=== PATIENT | male | born 1945 | race African-American/Black ===

== ENCOUNTER 2021-06-10 12:25 | Inpatient (IN) | payer OTHER ==
[2021-06-10] MEDS ORDERED: morphine CARPU-JECT 2 MG/1 ML DISP.SYRIN IVPUSH ONE ×3 (13:48→17:21)
[2021-06-10] MEDS ORDERED: SODIUM CHLORIDE 0.9% 500 ML INFUS.BAG IV ONE ×2 (14:12→16:49)
[2021-06-10] MEDS ORDERED: MORPHINE SULFATE 2 MG/ML VIAL ONE ×3 (14:31→17:49)
[2021-06-10 14:39] LABS: BASO % 0.9 % (0-2.0); EOS % 0.1 % (0-4.5); HEMATOCRIT 35.5 % (35.4-49); HEMOGLOBIN 11.3 GM/dL (11.7-16.9); LYMPH % 3.7 % (8-40); MCH 27.8 pg (25.7-33.7); MCHC 31.8 g/dl (32.0-35.9); MEAN CELL VOLUME 87.3 fl (80-96); MEAN PLT VOLUME 9.1 fl (7.5-11.1); MONO % 5.2 % (3.8-10.2); NEUT % 90.1 % (42.8-82.8); PLATELET COUNT 338 10^3/uL (134-434); RBC 4.07 M/mm3 (4.00-5.60); RDW 15.2 % (11.9-15.9); WHITE BLOOD COUNT 7.8 K/mm3 (4.0-10.0)
[2021-06-10 14:54] LABS: INR 1.02 (0.83-1.09); PROTHROMBIN TIME (PATIENT) 12.5 SEC (9.7-13.0)
[2021-06-10 14:58] LABS: ACTIVATED PTT 29.1 SECONDS (25.2-36.5)
[2021-06-10 15:12] LABS: CHLORIDE 107 mmol/L (98-107); SODIUM 138 mmol/L (136-145)
[2021-06-10 15:14] LABS: ANION GAP 10 MMOL/L (8-16); BLOOD UREA NITROGEN 15.4 mg/dL (7-18); CALCIUM 8.7 mg/dL (8.5-10.1); CO2 20 mmol/L (21-32); GLUCOSE,RANDOM 175 mg/dL (74-106)
[2021-06-10 15:17] LABS: CREATININE 1.7 mg/dL (0.55-1.3); SGOT/AST 21 U/L (15-37); SGPT/ALT 25 U/L (13-61)
[2021-06-10 15:20] LABS: ALK PHOS 113 U/L (45-117); BILIRUBIN,TOTAL 0.6 mg/dL (0.2-1); TOT PROT 7.6 g/dl (6.4-8.2)
[2021-06-10 15:54] LABS: LACTIC ACID 3.3 mmol/L (0.4-2.0)
[2021-06-10 21:34] LABS: LACTIC ACID 2.7 mmol/L (0.4-2.0)
[2021-06-10] MEDS ORDERED: ONDANSETRON 4 MG/2 ML VIAL IVPUSH PRN (23:19)
[2021-06-10] MEDS: DEXTROSE 5%-0.45% SALINE 1,000 ML IV SCH (23:39)
[2021-06-11] MEDS ORDERED: PIPERACILLIN/TAZOBACTAM 3.375 GM VIAL IVPB ONE ×3 (01:04→17:16)
[2021-06-11] MEDS ORDERED: DEXTROSE 5%-WATER - 50 ML IVPB ONE ×3 (01:05→17:17)
[2021-06-11] MEDS: PIPERACILLIN/TAZOB 3.375 GM 3.375 GM in DEXTROSE 5%-WATER - 50 ML IVPB SCH ×3 (01:33→18:09)
[2021-06-11] MEDS: MORPHINE SULFATE 2 MG/ML VIAL IVPUSH PRN ×2 (05:12→18:02)
[2021-06-11] MEDS: hydrALAZINE HCL 25 MG TABLET (FP) PO SCH ×3 (06:13→22:20)
[2021-06-11] MEDS: INSULIN SLIDING SCALE (NOVOLOG) 1 VIAL SQ SCH ×4 (06:13→22:20)
[2021-06-11 09:27] LABS: BASO % 0.3 % (0-2.0); EOS % 0.2 % (0-4.5); HEMATOCRIT 31.5 % (35.4-49); HEMOGLOBIN 10.1 GM/dL (11.7-16.9); LYMPH % 7.3 % (8-40); MCH 27.7 pg (25.7-33.7); MCHC 32.2 g/dl (32.0-35.9); MEAN CELL VOLUME 86.2 fl (80-96); MEAN PLT VOLUME 9.4 fl (7.5-11.1); MONO % 12.8 % (3.8-10.2); NEUT % 79.4 % (42.8-82.8); PLATELET COUNT 290 10^3/uL (134-434); RBC 3.65 M/mm3 (4.00-5.60); RDW 15.6 % (11.9-15.9); WHITE BLOOD COUNT 12.1 K/mm3 (4.0-10.0)
[2021-06-11 09:35] LABS: CALCIUM 8.4 mg/dL (8.5-10.1)
[2021-06-11 09:37] LABS: ALBUMIN 3.4 g/dl (3.4-5.0); BLOOD UREA NITROGEN 13.3 mg/dL (7-18)
[2021-06-11 09:44] LABS: BILIRUBIN,TOTAL 1.1 mg/dL (0.2-1); CREATININE 1.4 mg/dL (0.55-1.3); TOT PROT 6.4 g/dl (6.4-8.2)
[2021-06-11] MEDS: ENOXAPARIN NA (PORCINE) 40 MG/0.4 ML DISP.SYRIN SQ SCH (10:26)
[2021-06-11] MEDS ORDERED: METHOTREXATE 2.5 MG TABLET PO SCH (11:00)
[2021-06-11] MEDS: amLODIPine BESYLATE 10 MG TABLET (FP) PO SCH (12:05)
[2021-06-11] MEDS: metoPROLOL SUCCINATE 25 MG TAB.SR.24H (FP) PO SCH (12:05)
[2021-06-11] MEDS: ATORVASTATIN CA 20 MG TABLET (FP) PO SCH (22:20)
[2021-06-11] MEDS: DEXTROSE 5%-0.45% SALINE 1,000 ML IV SCH (23:34)
[2021-06-12] MEDS ORDERED: PIPERACILLIN/TAZOBACTAM 3.375 GM VIAL IVPB ONE ×3 (00:48→15:55)
[2021-06-12] MEDS ORDERED: DEXTROSE 5%-WATER - 50 ML IVPB ONE ×3 (00:48→15:56)
[2021-06-12] MEDS: PIPERACILLIN/TAZOB 3.375 GM 3.375 GM in DEXTROSE 5%-WATER - 50 ML IVPB SCH ×3 (01:02→17:07)
[2021-06-12] MEDS: MORPHINE SULFATE 2 MG/ML VIAL IVPUSH PRN ×4 (01:25→23:42)
[2021-06-12] MEDS ORDERED: PIPERACILLIN/TAZOB 3.375 GM 3.375 GM in DEXTROSE 5%-WATER - 50 ML IVPB SCH (02:00)
[2021-06-12] MEDS ORDERED: FUROSEMIDE 40 MG/4 ML INJECTABLE VIAL IVPUSH ONE (02:58)
[2021-06-12 03:07] LABS: ARTERIAL BLD GAS O2 SATURATION 95.9 % (95-98); ARTERIAL BLOOD GAS BASE EXCESS -3.8 mmol/L (-2-2); ARTERIAL BLOOD GAS PO2 81.2 mmHg (80-100); ARTERIAL BLOOD GAS pH 7.385 (7.350-7.450)
[2021-06-12 03:09] LABS: ALLENS TEST POSITIVE
[2021-06-12] MEDS ORDERED: VANCOMYCIN 1 GM in D5W (PRE-DOCKED) 1,000 MG/250 ML IVPB ONE (04:45)
[2021-06-12 05:00] LABS: BASO % 0.5 % (0-2.0); EOS % 0.1 % (0-4.5); HEMOGLOBIN 10.4 GM/dL (11.7-16.9); LYMPH % 1.4 % (8-40); MCH 27.6 pg (25.7-33.7); MCHC 32.6 g/dl (32.0-35.9); MEAN CELL VOLUME 84.7 fl (80-96); MEAN PLT VOLUME 8.9 fl (7.5-11.1); MONO % 8.7 % (3.8-10.2); NEUT % 89.3 % (42.8-82.8); PLATELET COUNT 278 10^3/uL (134-434); RBC 3.78 M/mm3 (4.00-5.60); RDW 15.4 % (11.9-15.9); WHITE BLOOD COUNT 16.1 K/mm3 (4.0-10.0)
[2021-06-12 05:20] LABS: CALCIUM 8.2 mg/dL (8.5-10.1)
[2021-06-12 05:21] LABS: ALBUMIN 3.3 g/dl (3.4-5.0); BLOOD UREA NITROGEN 11.7 mg/dL (7-18)
[2021-06-12 05:25] LABS: BILIRUBIN,TOTAL 1.8 mg/dL (0.2-1); CREATININE 1.5 mg/dL (0.55-1.3); TOT PROT 6.6 g/dl (6.4-8.2)
[2021-06-12] MEDS: INSULIN SLIDING SCALE (NOVOLOG) 1 VIAL SQ SCH ×4 (06:19→21:30)
[2021-06-12] MEDS: hydrALAZINE HCL 25 MG TABLET (FP) PO SCH ×3 (06:19→21:30)
[2021-06-12 09:08] LABS: BASO % 0.4 % (0-2.0); HEMATOCRIT 31.8 % (35.4-49); HEMOGLOBIN 10.4 GM/dL (11.7-16.9); LYMPH % 3.8 % (8-40); MCH 27.7 pg (25.7-33.7); MCHC 32.6 g/dl (32.0-35.9); MEAN CELL VOLUME 84.9 fl (80-96); MONO % 9.7 % (3.8-10.2); NEUT % 86.1 % (42.8-82.8); PLATELET COUNT 290 10^3/uL (134-434); RBC 3.75 M/mm3 (4.00-5.60); RDW 15.4 % (11.9-15.9); WHITE BLOOD COUNT 16.8 K/mm3 (4.0-10.0)
[2021-06-12] MEDS: metoPROLOL SUCCINATE 25 MG TAB.SR.24H (FP) PO SCH (09:28)
[2021-06-12] MEDS: amLODIPine BESYLATE 10 MG TABLET (FP) PO SCH (09:28)
[2021-06-12] MEDS: ENOXAPARIN NA (PORCINE) 40 MG/0.4 ML DISP.SYRIN SQ SCH (09:29)
[2021-06-12 09:34] LABS: ALBUMIN 3.2 g/dl (3.4-5.0); BLOOD UREA NITROGEN 11.7 mg/dL (7-18); CALCIUM 8.5 mg/dL (8.5-10.1)
[2021-06-12 09:37] LABS: CREATININE 1.5 mg/dL (0.55-1.3)
[2021-06-12 09:38] LABS: BILIRUBIN,TOTAL 1.5 mg/dL (0.2-1); TOT PROT 6.4 g/dl (6.4-8.2)
[2021-06-12] MEDS ORDERED: POTASSIUM CHLORIDE TABS 20 MEQ TABLET.ER (FP) PO ONE (15:35)
[2021-06-12 19:45] LABS: MAGNESIUM 1.4 mg/dL (1.8-2.4)
[2021-06-12 19:48] LABS: PHOSPHOROUS 2.3 mg/dL (2.5-4.9)
[2021-06-12 19:54] LABS: N-TERMINAL BNP 2323.3 pg/ml (5-450)
[2021-06-12] MEDS: ATORVASTATIN CA 20 MG TABLET (FP) PO SCH (21:30)
[2021-06-13] MEDS ORDERED: DEXTROSE 5%-WATER - 50 ML IVPB ONE ×3 (02:34→17:31)
[2021-06-13] MEDS ORDERED: PIPERACILLIN/TAZOBACTAM 3.375 GM VIAL IVPB ONE ×3 (02:34→17:31)
[2021-06-13] MEDS: PIPERACILLIN/TAZOB 3.375 GM 3.375 GM in DEXTROSE 5%-WATER - 50 ML IVPB SCH ×3 (02:45→17:45)
[2021-06-13] MEDS: INSULIN SLIDING SCALE (NOVOLOG) 1 VIAL SQ SCH ×4 (06:32→21:27)
[2021-06-13] MEDS: hydrALAZINE HCL 25 MG TABLET (FP) PO SCH ×3 (06:32→21:26)
[2021-06-13] MEDS: MORPHINE SULFATE 2 MG/ML VIAL IVPUSH PRN ×2 (08:45→14:51)
[2021-06-13] MEDS ORDERED: PT OWN MED DRAWER 7, Y5N ONE (10:39)
[2021-06-13] MEDS: metoPROLOL SUCCINATE 25 MG TAB.SR.24H (FP) PO SCH (10:45)
[2021-06-13] MEDS: amLODIPine BESYLATE 10 MG TABLET (FP) PO SCH (10:45)
[2021-06-13] MEDS: ENOXAPARIN NA (PORCINE) 40 MG/0.4 ML DISP.SYRIN SQ SCH (10:46)
[2021-06-13] MEDS: VANCOMYCIN PREMIX 1.5 GM 1,500 MG/300 ML BAG IVPB SCH (10:46)
[2021-06-13] MEDS: ACETAMINOPHEN 325 MG TABLET (FP) PO PRN ×2 (12:52→21:27)
[2021-06-13 13:11] LABS: BASO % 0.3 % (0-2.0); HEMATOCRIT 32.5 % (35.4-49); HEMOGLOBIN 10.6 GM/dL (11.7-16.9); LYMPH % 3.6 % (8-40); MCH 27.9 pg (25.7-33.7); MCHC 32.6 g/dl (32.0-35.9); MEAN CELL VOLUME 85.6 fl (80-96); MEAN PLT VOLUME 9.5 fl (7.5-11.1); MONO % 10.3 % (3.8-10.2); NEUT % 85.8 % (42.8-82.8); PLATELET COUNT 292 10^3/uL (134-434); RDW 15.3 % (11.9-15.9); WHITE BLOOD COUNT 14.2 K/mm3 (4.0-10.0)
[2021-06-13 13:31] LABS: CALCIUM 8.2 mg/dL (8.5-10.1)
[2021-06-13 13:35] LABS: CREATININE 1.5 mg/dL (0.55-1.3)
[2021-06-13 13:36] LABS: BILIRUBIN,TOTAL 1.6 mg/dL (0.2-1); TOT PROT 6.3 g/dl (6.4-8.2)
[2021-06-13] MEDS: FUROSEMIDE 40 MG TABLET (FP) PO SCH (14:51)
[2021-06-13] MEDS ORDERED: POTASSIUM CHLORIDE TABS 20 MEQ TABLET.ER (FP) PO ONE (15:00)
[2021-06-13 18:00] LABS: BF WBC & OTHER NUCLEATED CELLS 18355 /mm3
[2021-06-13 19:23] LABS: BODY FLUID MONOCYTE 15 %
[2021-06-13] MEDS: ATORVASTATIN CA 20 MG TABLET (FP) PO SCH (21:27)
[2021-06-14] MEDS ORDERED: PIPERACILLIN/TAZOBACTAM 3.375 GM VIAL IVPB ONE ×3 (01:39→17:21)
[2021-06-14] MEDS ORDERED: DEXTROSE 5%-WATER - 50 ML IVPB ONE ×3 (01:40→17:21)
[2021-06-14] MEDS: PIPERACILLIN/TAZOB 3.375 GM 3.375 GM in DEXTROSE 5%-WATER - 50 ML IVPB SCH ×3 (02:23→17:40)
[2021-06-14] MEDS: hydrALAZINE HCL 25 MG TABLET (FP) PO SCH ×3 (06:10→20:59)
[2021-06-14] MEDS: INSULIN SLIDING SCALE (NOVOLOG) 1 VIAL SQ SCH ×4 (06:11→20:59)
[2021-06-14] MEDS: MORPHINE SULFATE 2 MG/ML VIAL IVPUSH PRN ×2 (07:42→18:54)
[2021-06-14] MEDS ORDERED: PT OWN MED DRAWER 7, Y5N ONE (10:24)
[2021-06-14] MEDS: ENOXAPARIN NA (PORCINE) 40 MG/0.4 ML DISP.SYRIN SQ SCH (10:29)
[2021-06-14] MEDS: FUROSEMIDE 40 MG TABLET (FP) PO SCH (10:29)
[2021-06-14] MEDS: amLODIPine BESYLATE 10 MG TABLET (FP) PO SCH (10:29)
[2021-06-14 10:30] LABS: ALBUMIN 2.7 g/dl (3.4-5.0); BLOOD UREA NITROGEN 16.4 mg/dL (7-18)
[2021-06-14] MEDS: metoPROLOL SUCCINATE 25 MG TAB.SR.24H (FP) PO SCH (10:30)
[2021-06-14] MEDS: VANCOMYCIN PREMIX 1.5 GM 1,500 MG/300 ML BAG IVPB SCH (10:30)
[2021-06-14 10:33] LABS: CREATININE 1.6 mg/dL (0.55-1.3)
[2021-06-14 10:35] LABS: BILIRUBIN,TOTAL 1.2 mg/dL (0.2-1); TOT PROT 5.8 g/dl (6.4-8.2)
[2021-06-14] MEDS ORDERED: COLCHICINE 0.6 MG CAP PO SCH (15:00)
[2021-06-14] MEDS: COLCHICINE 0.6 MG CAP PO SCH (18:29)
[2021-06-14] MEDS: ATORVASTATIN CA 20 MG TABLET (FP) PO SCH (20:59)
[2021-06-15] MEDS ORDERED: PIPERACILLIN/TAZOBACTAM 3.375 GM VIAL IVPB ONE ×3 (01:14→17:25)
[2021-06-15] MEDS ORDERED: DEXTROSE 5%-WATER - 50 ML IVPB ONE ×3 (01:14→17:26)
[2021-06-15] MEDS: ACETAMINOPHEN 325 MG TABLET (FP) PO PRN ×2 (01:33→13:20)
[2021-06-15] MEDS: PIPERACILLIN/TAZOB 3.375 GM 3.375 GM in DEXTROSE 5%-WATER - 50 ML IVPB SCH ×3 (01:33→17:31)
[2021-06-15] MEDS: MORPHINE SULFATE 2 MG/ML VIAL IVPUSH PRN ×2 (05:41→18:29)
[2021-06-15] MEDS: hydrALAZINE HCL 25 MG TABLET (FP) PO SCH ×3 (05:42→21:00)
[2021-06-15] MEDS: INSULIN SLIDING SCALE (NOVOLOG) 1 VIAL SQ SCH ×4 (06:27→21:00)
[2021-06-15 08:17] LABS: BASO % 0.6 % (0-2.0); HEMATOCRIT 33.3 % (35.4-49); HEMOGLOBIN 10.8 GM/dL (11.7-16.9); LYMPH % 6.4 % (8-40); MCH 27.6 pg (25.7-33.7); MCHC 32.3 g/dl (32.0-35.9); MEAN CELL VOLUME 85.5 fl (80-96); MEAN PLT VOLUME 9.6 fl (7.5-11.1); MONO % 12.1 % (3.8-10.2); NEUT % 79.9 % (42.8-82.8); PLATELET COUNT 289 10^3/uL (134-434); RBC 3.89 M/mm3 (4.00-5.60); RDW 15.1 % (11.9-15.9); WHITE BLOOD COUNT 12.8 K/mm3 (4.0-10.0)
[2021-06-15 08:39] LABS: ALBUMIN 2.7 g/dl (3.4-5.0); BLOOD UREA NITROGEN 15.9 mg/dL (7-18); CALCIUM 8.2 mg/dL (8.5-10.1)
[2021-06-15 08:42] LABS: CREATININE 1.5 mg/dL (0.55-1.3)
[2021-06-15 08:44] LABS: TOT PROT 6.3 g/dl (6.4-8.2)
[2021-06-15] MEDS ORDERED: COLCHICINE 0.6 MG CAP PO SCH (10:00)
[2021-06-15] MEDS: ENOXAPARIN NA (PORCINE) 40 MG/0.4 ML DISP.SYRIN SQ SCH (11:05)
[2021-06-15] MEDS: VANCOMYCIN PREMIX 1.5 GM 1,500 MG/300 ML BAG IVPB SCH (11:05)
[2021-06-15] MEDS: FUROSEMIDE 40 MG TABLET (FP) PO SCH (11:07)
[2021-06-15] MEDS: amLODIPine BESYLATE 10 MG TABLET (FP) PO SCH (11:07)
[2021-06-15] MEDS: metoPROLOL SUCCINATE 25 MG TAB.SR.24H (FP) PO SCH (11:07)
[2021-06-15] MEDS: COLCHICINE 0.6 MG CAP PO SCH (12:07)
[2021-06-15] MEDS ORDERED: POTASSIUM CHLORIDE TABS 20 MEQ TABLET.ER (FP) PO ONE (12:22)
[2021-06-15] MEDS ORDERED: PT OWN MED DRAWER 7, Y5N ONE (14:25)
[2021-06-15] MEDS: ATORVASTATIN CA 20 MG TABLET (FP) PO SCH (21:00)
[2021-06-16] MEDS ORDERED: PIPERACILLIN/TAZOBACTAM 3.375 GM VIAL IVPB ONE ×3 (00:53→17:14)
[2021-06-16] MEDS ORDERED: DEXTROSE 5%-WATER - 50 ML IVPB ONE ×3 (00:54→17:14)
[2021-06-16] MEDS: PIPERACILLIN/TAZOB 3.375 GM 3.375 GM in DEXTROSE 5%-WATER - 50 ML IVPB SCH ×3 (01:18→17:28)
[2021-06-16] MEDS: INSULIN SLIDING SCALE (NOVOLOG) 1 VIAL SQ SCH ×4 (06:21→21:39)
[2021-06-16] MEDS: hydrALAZINE HCL 25 MG TABLET (FP) PO SCH ×3 (06:21→21:39)
[2021-06-16] MEDS: MORPHINE SULFATE 2 MG/ML VIAL IVPUSH PRN ×2 (06:55→17:28)
[2021-06-16] MEDS ORDERED: PT OWN MED DRAWER 7, Y5N ONE (09:45)
[2021-06-16] MEDS: FUROSEMIDE 40 MG TABLET (FP) PO SCH (09:47)
[2021-06-16] MEDS: ENOXAPARIN NA (PORCINE) 40 MG/0.4 ML DISP.SYRIN SQ SCH (09:47)
[2021-06-16] MEDS: amLODIPine BESYLATE 10 MG TABLET (FP) PO SCH (09:47)
[2021-06-16 09:48] LABS: BASO % 0.4 % (0-2.0); EOS % 1.3 % (0-4.5); HEMATOCRIT 30.2 % (35.4-49); HEMOGLOBIN 9.8 GM/dL (11.7-16.9); LYMPH % 4.9 % (8-40); MCH 27.5 pg (25.7-33.7); MCHC 32.5 g/dl (32.0-35.9); MEAN CELL VOLUME 84.6 fl (80-96); MEAN PLT VOLUME 9.3 fl (7.5-11.1); MONO % 9.7 % (3.8-10.2); NEUT % 83.7 % (42.8-82.8); PLATELET COUNT 284 10^3/uL (134-434); RBC 3.57 M/mm3 (4.00-5.60); RDW 15.1 % (11.9-15.9); WHITE BLOOD COUNT 14.9 K/mm3 (4.0-10.0)
[2021-06-16] MEDS: metoPROLOL SUCCINATE 25 MG TAB.SR.24H (FP) PO SCH (09:48)
[2021-06-16] MEDS: ACETAMINOPHEN 325 MG TABLET (FP) PO PRN ×2 (09:50→20:05)
[2021-06-16 10:10] LABS: CALCIUM 8.1 mg/dL (8.5-10.1)
[2021-06-16 10:11] LABS: ALBUMIN 2.5 g/dl (3.4-5.0); BLOOD UREA NITROGEN 17.9 mg/dL (7-18); MAGNESIUM 1.6 mg/dL (1.8-2.4)
[2021-06-16 10:13] LABS: BILIRUBIN,TOTAL 0.7 mg/dL (0.2-1)
[2021-06-16 10:14] LABS: CREATININE 1.4 mg/dL (0.55-1.3)
[2021-06-16] MEDS ORDERED: POTASSIUM CHLORIDE TABS 20 MEQ TABLET.ER (FP) PO ONE ×2 (12:00→20:00)
[2021-06-16] MEDS: COLCHICINE 0.6 MG CAP PO SCH (12:23)
[2021-06-16] MEDS: ATORVASTATIN CA 20 MG TABLET (FP) PO SCH (21:39)
[2021-06-17] MEDS ORDERED: PIPERACILLIN/TAZOBACTAM 3.375 GM VIAL IVPB ONE ×3 (00:44→16:31)
[2021-06-17] MEDS ORDERED: DEXTROSE 5%-WATER - 50 ML IVPB ONE ×3 (00:44→16:32)
[2021-06-17] MEDS: MORPHINE SULFATE 2 MG/ML VIAL IVPUSH PRN ×3 (01:03→18:34)
[2021-06-17] MEDS: PIPERACILLIN/TAZOB 3.375 GM 3.375 GM in DEXTROSE 5%-WATER - 50 ML IVPB SCH ×3 (01:52→17:25)
[2021-06-17] MEDS: INSULIN SLIDING SCALE (NOVOLOG) 1 VIAL SQ SCH ×4 (06:36→22:24)
[2021-06-17] MEDS: hydrALAZINE HCL 25 MG TABLET (FP) PO SCH ×3 (06:37→22:25)
[2021-06-17 08:51] LABS: ALBUMIN 2.5 g/dl (3.4-5.0); BLOOD UREA NITROGEN 16.4 mg/dL (7-18); CALCIUM 8.3 mg/dL (8.5-10.1); MAGNESIUM 1.6 mg/dL (1.8-2.4)
[2021-06-17 08:54] LABS: CREATININE 1.4 mg/dL (0.55-1.3)
[2021-06-17 08:56] LABS: BILIRUBIN,TOTAL 0.7 mg/dL (0.2-1); TOT PROT 6.1 g/dl (6.4-8.2)
[2021-06-17] MEDS ORDERED: PT OWN MED DRAWER 7, Y5N ONE ×3 (10:03→18:33)
[2021-06-17] MEDS: metoPROLOL SUCCINATE 25 MG TAB.SR.24H (FP) PO SCH (10:15)
[2021-06-17] MEDS: FUROSEMIDE 40 MG TABLET (FP) PO SCH (10:15)
[2021-06-17] MEDS: ACETAMINOPHEN 325 MG TABLET (FP) PO PRN (10:15)
[2021-06-17] MEDS: amLODIPine BESYLATE 10 MG TABLET (FP) PO SCH (10:15)
[2021-06-17] MEDS: ENOXAPARIN NA (PORCINE) 40 MG/0.4 ML DISP.SYRIN SQ SCH (10:16)
[2021-06-17 11:21] LABS: BASO % 0.5 % (0-2.0); EOS % 2.2 % (0-4.5); HEMATOCRIT 31.2 % (35.4-49); HEMOGLOBIN 10.1 GM/dL (11.7-16.9); LYMPH % 5.1 % (8-40); MCH 27.6 pg (25.7-33.7); MCHC 32.3 g/dl (32.0-35.9); MEAN CELL VOLUME 85.5 fl (80-96); MEAN PLT VOLUME 9.8 fl (7.5-11.1); MONO % 8.3 % (3.8-10.2); NEUT % 83.9 % (42.8-82.8); PLATELET COUNT 297 10^3/uL (134-434); RBC 3.65 M/mm3 (4.00-5.60); RDW 14.9 % (11.9-15.9); WHITE BLOOD COUNT 12.9 K/mm3 (4.0-10.0)
[2021-06-17 11:47] LABS: ANISOCYTOSIS 0; MACROCYTOSIS 0; PLATELET ESTIMATE NORMAL
[2021-06-17] MEDS: COLCHICINE 0.6 MG TAB PO SCH (12:25)
[2021-06-17] MEDS: COLCHICINE 0.6 MG CAP PO SCH (12:32)
[2021-06-17] MEDS ORDERED: POTASSIUM CHLORIDE TABS 20 MEQ TABLET.ER (FP) PO ONE (16:33)
[2021-06-17] MEDS ORDERED: MAGNESIUM OXIDE 400 MG TABLET (FP) PO ONE (16:33)
[2021-06-17] MEDS: ATORVASTATIN CA 20 MG TABLET (FP) PO SCH (22:25)
[2021-06-18] MEDS ORDERED: PIPERACILLIN/TAZOBACTAM 3.375 GM VIAL IVPB ONE ×3 (02:54→17:24)
[2021-06-18] MEDS ORDERED: DEXTROSE 5%-WATER - 50 ML IVPB ONE ×3 (02:54→17:24)
[2021-06-18] MEDS: PIPERACILLIN/TAZOB 3.375 GM 3.375 GM in DEXTROSE 5%-WATER - 50 ML IVPB SCH ×3 (02:59→17:28)
[2021-06-18] MEDS: MORPHINE SULFATE 2 MG/ML VIAL IVPUSH PRN ×3 (03:56→20:36)
[2021-06-18] MEDS: INSULIN SLIDING SCALE (NOVOLOG) 1 VIAL SQ SCH ×4 (06:28→21:30)
[2021-06-18] MEDS: hydrALAZINE HCL 25 MG TABLET (FP) PO SCH ×3 (06:28→21:27)
[2021-06-18 09:24] LABS: EOS % 2.3 % (0-4.5); HEMOGLOBIN 10.5 GM/dL (11.7-16.9); LYMPH % 8.3 % (8-40); MCH 27.9 pg (25.7-33.7); MCHC 32.7 g/dl (32.0-35.9); MEAN CELL VOLUME 85.5 fl (80-96); MEAN PLT VOLUME 9.5 fl (7.5-11.1); MONO % 9.9 % (3.8-10.2); NEUT % 78.5 % (42.8-82.8); PLATELET COUNT 323 10^3/uL (134-434); RBC 3.75 M/mm3 (4.00-5.60); WHITE BLOOD COUNT 12.5 K/mm3 (4.0-10.0)
[2021-06-18] MEDS ORDERED: PT OWN MED DRAWER 7, Y5N ONE (09:37)
[2021-06-18] MEDS: COLCHICINE 0.6 MG TAB PO SCH (09:47)
[2021-06-18] MEDS: metoPROLOL SUCCINATE 25 MG TAB.SR.24H (FP) PO SCH (09:47)
[2021-06-18] MEDS: amLODIPine BESYLATE 10 MG TABLET (FP) PO SCH (09:47)
[2021-06-18] MEDS: FUROSEMIDE 40 MG TABLET (FP) PO SCH (09:47)
[2021-06-18 10:05] LABS: ALBUMIN 2.7 g/dl (3.4-5.0); CALCIUM 8.6 mg/dL (8.5-10.1)
[2021-06-18 10:06] LABS: BLOOD UREA NITROGEN 14.1 mg/dL (7-18); MAGNESIUM 1.8 mg/dL (1.8-2.4)
[2021-06-18 10:09] LABS: BILIRUBIN,TOTAL 0.7 mg/dL (0.2-1); CREATININE 1.3 mg/dL (0.55-1.3); TOT PROT 6.6 g/dl (6.4-8.2)
[2021-06-18] MEDS: ACETAMINOPHEN 325 MG TABLET (FP) PO PRN ×2 (11:19→16:35)
[2021-06-18 11:46] VITALS: BMI 32.5
[2021-06-18] MEDS: POTASSIUM CHLORIDE TABS 20 MEQ TABLET.ER (FP) PO SCH (11:53)
[2021-06-18] MEDS: ATORVASTATIN CA 20 MG TABLET (FP) PO SCH (21:27)
[2021-06-19] MEDS ORDERED: PIPERACILLIN/TAZOBACTAM 3.375 GM VIAL IVPB ONE ×2 (01:31→10:59)
[2021-06-19] MEDS ORDERED: DEXTROSE 5%-WATER - 50 ML IVPB ONE ×2 (01:31→10:59)
[2021-06-19] MEDS: PIPERACILLIN/TAZOB 3.375 GM 3.375 GM in DEXTROSE 5%-WATER - 50 ML IVPB SCH ×2 (01:46→11:02)
[2021-06-19] MEDS: hydrALAZINE HCL 25 MG TABLET (FP) PO SCH ×3 (06:13→21:01)
[2021-06-19] MEDS: INSULIN SLIDING SCALE (NOVOLOG) 1 VIAL SQ SCH ×4 (06:13→21:01)
[2021-06-19] MEDS ORDERED: PT OWN MED DRAWER 7, Y5N ONE (10:59)
[2021-06-19] MEDS: POTASSIUM CHLORIDE TABS 20 MEQ TABLET.ER (FP) PO SCH (11:03)
[2021-06-19] MEDS: FUROSEMIDE 40 MG TABLET (FP) PO SCH (11:03)
[2021-06-19] MEDS: metoPROLOL SUCCINATE 25 MG TAB.SR.24H (FP) PO SCH (11:03)
[2021-06-19] MEDS: amLODIPine BESYLATE 10 MG TABLET (FP) PO SCH (11:03)
[2021-06-19] MEDS: COLCHICINE 0.6 MG TAB PO SCH (11:03)
[2021-06-19] MEDS: MORPHINE SULFATE 2 MG/ML VIAL IVPUSH PRN (12:02)
[2021-06-19] MEDS ORDERED: MORPHINE SULFATE 2 MG/ML VIAL IVPUSH ONE (20:15)
[2021-06-19] MEDS: ATORVASTATIN CA 20 MG TABLET (FP) PO SCH (21:01)
[2021-06-20] MEDS: hydrALAZINE HCL 25 MG TABLET (FP) PO SCH ×3 (06:10→21:47)
[2021-06-20] MEDS: INSULIN SLIDING SCALE (NOVOLOG) 1 VIAL SQ SCH ×4 (06:10→21:47)
[2021-06-20 08:28] LABS: BASO % 0.8 % (0-2.0); EOS % 1.9 % (0-4.5); HEMATOCRIT 31.6 % (35.4-49); HEMOGLOBIN 10.2 GM/dL (11.7-16.9); LYMPH % 8.7 % (8-40); MCH 27.6 pg (25.7-33.7); MCHC 32.5 g/dl (32.0-35.9); MEAN CELL VOLUME 84.9 fl (80-96); MEAN PLT VOLUME 9.4 fl (7.5-11.1); MONO % 9.9 % (3.8-10.2); NEUT % 78.7 % (42.8-82.8); PLATELET COUNT 345 10^3/uL (134-434); RBC 3.71 M/mm3 (4.00-5.60); RDW 15.5 % (11.9-15.9)
[2021-06-20 08:49] LABS: BLOOD UREA NITROGEN 14.3 mg/dL (7-18); CALCIUM 8.9 mg/dL (8.5-10.1); MAGNESIUM 1.8 mg/dL (1.8-2.4)
[2021-06-20 08:50] LABS: ALBUMIN 2.9 g/dl (3.4-5.0)
[2021-06-20 08:53] LABS: CREATININE 1.2 mg/dL (0.55-1.3)
[2021-06-20 08:54] LABS: TOT PROT 6.8 g/dl (6.4-8.2)
[2021-06-20 08:56] LABS: BILIRUBIN,TOTAL 0.7 mg/dL (0.2-1)
[2021-06-20] MEDS ORDERED: PT OWN MED DRAWER 7, Y5N ONE (09:37)
[2021-06-20] MEDS: POTASSIUM CHLORIDE TABS 20 MEQ TABLET.ER (FP) PO SCH (10:19)
[2021-06-20] MEDS: COLCHICINE 0.6 MG TAB PO SCH (10:19)
[2021-06-20] MEDS: amLODIPine BESYLATE 10 MG TABLET (FP) PO SCH (10:20)
[2021-06-20] MEDS: FUROSEMIDE 40 MG TABLET (FP) PO SCH (10:20)
[2021-06-20] MEDS: metoPROLOL SUCCINATE 25 MG TAB.SR.24H (FP) PO SCH (10:21)
[2021-06-20] MEDS: ACETAMINOPHEN 325 MG TABLET (FP) PO PRN (10:21)
[2021-06-20 11:33] LABS: ANISOCYTOSIS 1+; MACROCYTOSIS 0; PLATELET ESTIMATE NORMAL
[2021-06-20] MEDS: oxyCODONE HCL 5 MG TABLET PO PRN (18:44)
[2021-06-20] MEDS: ATORVASTATIN CA 20 MG TABLET (FP) PO SCH (21:47)
[2021-06-21] MEDS: INSULIN SLIDING SCALE (NOVOLOG) 1 VIAL SQ SCH ×4 (06:22→22:34)
[2021-06-21] MEDS: oxyCODONE HCL 5 MG TABLET PO PRN ×2 (06:22→18:29)
[2021-06-21] MEDS: hydrALAZINE HCL 25 MG TABLET (FP) PO SCH ×3 (06:22→22:34)
[2021-06-21] MEDS: amLODIPine BESYLATE 10 MG TABLET (FP) PO SCH (11:12)
[2021-06-21] MEDS: metoPROLOL SUCCINATE 25 MG TAB.SR.24H (FP) PO SCH (11:12)
[2021-06-21] MEDS: POTASSIUM CHLORIDE TABS 20 MEQ TABLET.ER (FP) PO SCH (11:12)
[2021-06-21] MEDS: FUROSEMIDE 40 MG TABLET (FP) PO SCH (11:12)
[2021-06-21] MEDS: COLCHICINE 0.6 MG TAB PO SCH (11:13)
[2021-06-21] MEDS: ATORVASTATIN CA 20 MG TABLET (FP) PO SCH (22:34)
[2021-06-22] MEDS: INSULIN SLIDING SCALE (NOVOLOG) 1 VIAL SQ SCH ×4 (07:07→21:20)
[2021-06-22] MEDS: hydrALAZINE HCL 25 MG TABLET (FP) PO SCH ×3 (07:07→21:02)
[2021-06-22] MEDS: metoPROLOL SUCCINATE 25 MG TAB.SR.24H (FP) PO SCH (09:22)
[2021-06-22] MEDS: oxyCODONE HCL 5 MG TABLET PO PRN (09:22)
[2021-06-22] MEDS: POTASSIUM CHLORIDE TABS 20 MEQ TABLET.ER (FP) PO SCH (09:22)
[2021-06-22] MEDS: amLODIPine BESYLATE 10 MG TABLET (FP) PO SCH (09:22)
[2021-06-22] MEDS: FUROSEMIDE 40 MG TABLET (FP) PO SCH (09:22)
[2021-06-22] MEDS ORDERED: PT OWN MED DRAWER 7, Y5N ONE (09:28)
[2021-06-22] MEDS: COLCHICINE 0.6 MG TAB PO SCH (09:29)
[2021-06-22] MEDS: ATORVASTATIN CA 20 MG TABLET (FP) PO SCH (21:02)
[2021-06-23] MEDS: oxyCODONE HCL 5 MG TABLET PO PRN ×2 (02:42→15:14)
[2021-06-23] MEDS: hydrALAZINE HCL 25 MG TABLET (FP) PO SCH ×3 (05:23→22:26)
[2021-06-23] MEDS: INSULIN SLIDING SCALE (NOVOLOG) 1 VIAL SQ SCH ×4 (06:21→22:26)
[2021-06-23 09:13] LABS: BASO % 1.3 % (0-2.0); EOS % 4.1 % (0-4.5); HEMATOCRIT 32.5 % (35.4-49); HEMOGLOBIN 10.9 GM/dL (11.7-16.9); LYMPH % 14.4 % (8-40); MCH 28.4 pg (25.7-33.7); MCHC 33.4 g/dl (32.0-35.9); MEAN CELL VOLUME 85.2 fl (80-96); MEAN PLT VOLUME 9.2 fl (7.5-11.1); MONO % 12.7 % (3.8-10.2); NEUT % 67.5 % (42.8-82.8); PLATELET COUNT 368 10^3/uL (134-434); RBC 3.82 M/mm3 (4.00-5.60); RDW 15.2 % (11.9-15.9); WHITE BLOOD COUNT 8.7 K/mm3 (4.0-10.0)
[2021-06-23 09:34] LABS: CALCIUM 8.9 mg/dL (8.5-10.1)
[2021-06-23 09:35] LABS: ALBUMIN 3.2 g/dl (3.4-5.0); BLOOD UREA NITROGEN 11.3 mg/dL (7-18)
[2021-06-23 09:38] LABS: CREATININE 1.3 mg/dL (0.55-1.3)
[2021-06-23 09:39] LABS: BILIRUBIN,TOTAL 0.6 mg/dL (0.2-1)
[2021-06-23] MEDS: amLODIPine BESYLATE 10 MG TABLET (FP) PO SCH (10:17)
[2021-06-23] MEDS: ACETAMINOPHEN 325 MG TABLET (FP) PO PRN (10:17)
[2021-06-23] MEDS: metoPROLOL SUCCINATE 25 MG TAB.SR.24H (FP) PO SCH (10:17)
[2021-06-23] MEDS: FUROSEMIDE 40 MG TABLET (FP) PO SCH (10:17)
[2021-06-23] MEDS: POTASSIUM CHLORIDE TABS 20 MEQ TABLET.ER (FP) PO SCH (10:17)
[2021-06-23] MEDS: COLCHICINE 0.6 MG TAB PO SCH (10:21)
[2021-06-23] MEDS ORDERED: PT OWN MED DRAWER 7, Y5N ONE (10:21)
[2021-06-23] MEDS: ATORVASTATIN CA 20 MG TABLET (FP) PO SCH (22:26)
[2021-06-24] MEDS: INSULIN SLIDING SCALE (NOVOLOG) 1 VIAL SQ SCH ×5 (06:32→22:27)
[2021-06-24] MEDS: hydrALAZINE HCL 25 MG TABLET (FP) PO SCH ×3 (06:33→22:22)
[2021-06-24] MEDS ORDERED: PT OWN MED DRAWER 7, Y5N ONE (10:09)
[2021-06-24] MEDS: COLCHICINE 0.6 MG TAB PO SCH (10:26)
[2021-06-24] MEDS: POTASSIUM CHLORIDE TABS 20 MEQ TABLET.ER (FP) PO SCH (10:26)
[2021-06-24] MEDS: FUROSEMIDE 40 MG TABLET (FP) PO SCH (10:27)
[2021-06-24] MEDS: metoPROLOL SUCCINATE 25 MG TAB.SR.24H (FP) PO SCH (10:27)
[2021-06-24] MEDS: amLODIPine BESYLATE 10 MG TABLET (FP) PO SCH (10:27)
[2021-06-24] MEDS: ACETAMINOPHEN 325 MG TABLET (FP) PO PRN ×2 (17:06→22:22)
[2021-06-24] MEDS: ATORVASTATIN CA 20 MG TABLET (FP) PO SCH (22:22)
[2021-06-25] MEDS: hydrALAZINE HCL 25 MG TABLET (FP) PO SCH ×3 (06:48→22:22)
[2021-06-25] MEDS: INSULIN SLIDING SCALE (NOVOLOG) 1 VIAL SQ SCH ×4 (06:48→22:25)
[2021-06-25] MEDS: ACETAMINOPHEN 325 MG TABLET (FP) PO PRN (07:59)
[2021-06-25] MEDS ORDERED: PT OWN MED DRAWER 7, Y5N ONE (09:48)
[2021-06-25] MEDS: FUROSEMIDE 40 MG TABLET (FP) PO SCH (09:49)
[2021-06-25] MEDS: metoPROLOL SUCCINATE 25 MG TAB.SR.24H (FP) PO SCH (09:49)
[2021-06-25] MEDS: amLODIPine BESYLATE 10 MG TABLET (FP) PO SCH (09:49)
[2021-06-25] MEDS: POTASSIUM CHLORIDE TABS 20 MEQ TABLET.ER (FP) PO SCH (09:49)
[2021-06-25] MEDS: COLCHICINE 0.6 MG TAB PO SCH (09:50)
[2021-06-25 10:23] LABS: BLOOD UREA NITROGEN 11.8 mg/dL (7-18)
[2021-06-25 10:26] LABS: CREATININE 1.4 mg/dL (0.55-1.3)
[2021-06-25] MEDS ORDERED: traMADol HCL 50 MG TABLET PO ONE (16:30)
[2021-06-25] MEDS: ATORVASTATIN CA 20 MG TABLET (FP) PO SCH (22:22)
[2021-06-26] MEDS: ACETAMINOPHEN 325 MG TABLET (FP) PO PRN (05:31)
[2021-06-26] MEDS: hydrALAZINE HCL 25 MG TABLET (FP) PO SCH ×2 (05:32→15:30)
[2021-06-26] MEDS: INSULIN SLIDING SCALE (NOVOLOG) 1 VIAL SQ SCH ×2 (06:40→12:31)
[2021-06-26] MEDS ORDERED: PT OWN MED DRAWER 7, Y5N ONE (09:40)
[2021-06-26] MEDS: metoPROLOL SUCCINATE 25 MG TAB.SR.24H (FP) PO SCH (09:55)
[2021-06-26] MEDS: COLCHICINE 0.6 MG TAB PO SCH (09:55)
[2021-06-26] MEDS: amLODIPine BESYLATE 10 MG TABLET (FP) PO SCH (09:55)
[2021-06-26] MEDS: FUROSEMIDE 40 MG TABLET (FP) PO SCH (09:55)
[2021-06-26 10:13] LABS: CALCIUM 9.2 mg/dL (8.5-10.1)
[2021-06-26 10:14] LABS: ALBUMIN 3.4 g/dl (3.4-5.0); BLOOD UREA NITROGEN 13.5 mg/dL (7-18)
[2021-06-26 10:17] LABS: CREATININE 1.5 mg/dL (0.55-1.3)
[2021-06-26 10:18] LABS: BILIRUBIN,TOTAL 1.3 mg/dL (0.2-1); TOT PROT 7.5 g/dl (6.4-8.2)
[2021-06-26] MEDS ORDERED: FUROSEMIDE 40 MG TABLET (FP) PO SCH (14:58)
[2021-06-26 16:22] VITALS: BP 116/85; PULSE 79; TEMP 98.2
== END 2021-06-26 16:12 | DRG 554 ==
LOC: JER 12:25 → JERBED 17:54 → J5S 06-11 00:34
PROVIDERS: ADMIT Internal Medicine; ATTEND Internal Medicine
PROC: 0S9D3ZZ Drainage of Left Knee Joint, Percutaneous Approach (ICD-10-PCS; principal; 2021-06-13)
DX: M10.9 Gout, unspecified (principal); N17.9 Acute kidney failure, unspecified; E87.2 Acidosis; I50.30 Unspecified diastolic (congestive) heart failure; J98.11 Atelectasis; K80.00 Calculus of gallbladder with acute cholecystitis without obstruction; I11.0 Hypertensive heart disease with heart failure; E11.9 Type 2 diabetes mellitus without complications; E78.5 Hyperlipidemia, unspecified; K59.09 Other constipation; C61 Malignant neoplasm of prostate; I25.10 Atherosclerotic heart disease of native coronary artery without angina pectoris; M06.39 Rheumatoid nodule, multiple sites; D72.829 Elevated white blood cell count, unspecified; E87.6 Hypokalemia; M25.562 Pain in left knee; R00.1 Bradycardia, unspecified; M25.462 Effusion, left knee; E66.9 Obesity, unspecified; Z68.32 Body mass index [BMI] 32.0-32.9, adult; Z95.5 Presence of coronary angioplasty implant and graft
CPT/HCPCS: 36415; 36600; 71045-TC-FY; 71275-TC; 72100-TC-FY; 73560-TC-LT-FY; 74174-TC; 74177-TC; 76705-TC; 78226-TC; 78306-TC; 80048; 80053; 82550; 82553; 82803; 82962; 83036; 83605; 83735; 83880; 84100; 84443; 84484; 85025; 85610; 85730; 86850; 86900; 86901; 87040; 87070; 87075; 87086; 87205; 89060; 93005; 93010; 93306-TC; 97116-GP; 97162-GP; 99285-25; A9503; A9537; C9803; Q9967; U0003; U0005

== ENCOUNTER 2024-08-31 20:31 | Inpatient (IN) | payer OTHER ==
[2024-08-31] MEDS: IOHEXOL (OMNIPAQUE IV) 350 MG/ML - 100 ML BOTTLE PO ONE ×2 (21:59→22:46)
[2024-08-31 22:14] LABS: BASO % 1.2 % (0-2.0); EOS % 6.4 % (0-4.5); HEMATOCRIT 35.5 % (35.4-49); HEMOGLOBIN 11.5 GM/dL (11.7-16.9); LYMPH % 18.2 % (8-40); MCH 26.7 pg (25.7-33.7); MCHC 32.5 g/dl (32.0-35.9); MONO % 12.2 % (3.8-10.2); PLATELET COUNT 177 10^3/uL (134-434); RBC 4.33 M/mm3 (4.00-5.60); RDW 14.9 % (11.9-15.9); WHITE BLOOD COUNT 5.5 K/mm3 (4.0-10.0)
[2024-08-31 22:31] LABS: POTASSIUM 4.2 mmol/L (3.5-5.1)
[2024-08-31 22:32] LABS: INR 0.98 (0.83-1.09); PROTHROMBIN TIME (PATIENT) 11.1 SEC (9.7-13.0)
[2024-08-31 22:33] LABS: CALCIUM 8.9 mg/dL (8.5-10.1)
[2024-08-31 22:34] LABS: ALBUMIN 3.5 g/dl (3.4-5.0); BLOOD UREA NITROGEN 22.8 mg/dL (7-18)
[2024-08-31 22:35] LABS: ACTIVATED PTT 27.2 SECONDS (25.2-36.5)
[2024-08-31 22:37] LABS: CREATININE 2.4 mg/dL (0.55-1.3)
[2024-08-31 22:38] LABS: BILIRUBIN,TOTAL 0.6 mg/dL (0.2-1)
[2024-08-31 23:36] LABS: URINE APPEARANCE CLEAR; URINE BILIRUBIN NEGATIVE (NEGATIVE); URINE COLOR YELLOW; URINE GLUCOSE (UA) 3+ (NEGATIVE); URINE KETONE NEGATIVE (NEGATIVE); URINE LEUK ESTERASE NEGATIVE (NEGATIVE); URINE NITRITE NEGATIVE (NEGATIVE); URINE PROTEIN 1+ (NEGATIVE)
[2024-09-01 02:30] LABS: EPI CELLS 2.4 /uL (0-25.1); HYALINE CASTS 0.29 /uL (0-3.1); URINE BACTERIA 1.8 /uL (0-1359); URINE RBC 8.7 /uL (0-23.9); URINE WBC 3.7 /uL (0-25.8)
[2024-09-01] MEDS: SODIUM CHLORIDE 0.9% 500 ML INFUS.BAG IV ONE (04:17)
[2024-09-01] MEDS ORDERED: ACETAMINOPHEN INJECTION 100 ML ONE (04:49)
[2024-09-01] MEDS: ACETAMINOPHEN 1000 MG/100 ML BAG IVPB ONE (05:03)
[2024-09-01 06:28] VITALS: BMI 31.1
[2024-09-01] MEDS: LACTATED RINGERS SOLUTION 1,000 ML IV SCH ×2 (06:57→15:09)
[2024-09-01 10:02] LABS: BASO % 0.8 % (0-2.0); EOS % 9.9 % (0-4.5); HEMATOCRIT 36.3 % (35.4-49); HEMOGLOBIN 11.4 GM/dL (11.7-16.9); LYMPH % 20.9 % (8-40); MCH 26.2 pg (25.7-33.7); MCHC 31.4 g/dl (32.0-35.9); MEAN CELL VOLUME 83.5 fl (80-96); MEAN PLT VOLUME 8.8 fl (7.5-11.1); MONO % 9.9 % (3.8-10.2); NEUT % 58.5 % (42.8-82.8); PLATELET COUNT 160 10^3/uL (134-434); RBC 4.35 M/mm3 (4.00-5.60); RDW 14.3 % (11.9-15.9); WHITE BLOOD COUNT 4.7 K/mm3 (4.0-10.0)
[2024-09-01] MEDS ORDERED: METHOTREXATE 2.5 MG TABLET PO SCH (10:30)
[2024-09-01 10:36] LABS: CALCIUM 8.6 mg/dL (8.5-10.1)
[2024-09-01 10:37] LABS: BLOOD UREA NITROGEN 20.9 mg/dL (7-18)
[2024-09-01 10:40] LABS: CREATININE 1.9 mg/dL (0.55-1.3)
[2024-09-01] MEDS: amLODIPine BESYLATE 10 MG TABLET (FP) PO SCH (11:06)
[2024-09-01] MEDS: metoPROLOL SUCCINATE 25 MG TAB.SR.24H (FP) PO SCH (11:06)
[2024-09-01] MEDS: FUROSEMIDE 40 MG TABLET (FP) PO SCH (12:45)
[2024-09-01] MEDS: hydrALAZINE HCL 25 MG TABLET (FP) PO SCH (15:09)
[2024-09-01] MEDS: POLYETHYLENE GLYCOL (HEALTHYLAX) 3350 17 GM PACKET PO SCH (15:32)
[2024-09-01] MEDS: INSULIN ASPART SLIDING SCALE (NOVOLOG) 1 VIAL SQ SCH (18:22)
[2024-09-01] MEDS: DEXTROSE 5%-0.45% SALINE 1,000 ML IV SCH (18:22)
[2024-09-01] MEDS: ATORVASTATIN CA 20 MG TABLET (FP) PO SCH (21:45)
[2024-09-02 10:13] LABS: HEMATOCRIT 36.6 % (35.4-49); HEMOGLOBIN 12.1 GM/dL (11.7-16.9); LYMPH % 21.2 % (8-40); MCHC 33.2 g/dl (32.0-35.9); MEAN CELL VOLUME 81.6 fl (80-96); MEAN PLT VOLUME 8.7 fl (7.5-11.1); MONO % 10.9 % (3.8-10.2); NEUT % 55.9 % (42.8-82.8); PLATELET COUNT 185 10^3/uL (134-434); RBC 4.48 M/mm3 (4.00-5.60); RDW 14.8 % (11.9-15.9); WHITE BLOOD COUNT 4.5 K/mm3 (4.0-10.0)
[2024-09-02 10:28] LABS: POTASSIUM 4.1 mmol/L (3.5-5.1)
[2024-09-02 10:33] LABS: ALBUMIN 3.4 g/dl (3.4-5.0); CALCIUM 9.2 mg/dL (8.5-10.1)
[2024-09-02 10:34] LABS: BLOOD UREA NITROGEN 14.6 mg/dL (7-18)
[2024-09-02 10:37] LABS: CREATININE 1.7 mg/dL (0.55-1.3)
[2024-09-02 10:39] LABS: TOT PROT 6.7 g/dl (6.4-8.2)
[2024-09-02] MEDS: ENOXAPARIN NA (PORCINE) 40 MG/0.4 ML DISP.SYRIN SQ SCH (10:43)
[2024-09-02] MEDS: ASPIRIN 81 MG CHEWABLE TABLETS PO SCH (10:44)
[2024-09-02 14:07] VITALS: RESP 20
[2024-09-03 10:52] LABS: EOS % 13.7 % (0-4.5); HEMATOCRIT 34.8 % (35.4-49); HEMOGLOBIN 11.4 GM/dL (11.7-16.9); LYMPH % 23.5 % (8-40); MCH 26.7 pg (25.7-33.7); MCHC 32.7 g/dl (32.0-35.9); MEAN CELL VOLUME 81.7 fl (80-96); MEAN PLT VOLUME 8.5 fl (7.5-11.1); MONO % 10.7 % (3.8-10.2); NEUT % 51.1 % (42.8-82.8); PLATELET COUNT 171 10^3/uL (134-434); RBC 4.26 M/mm3 (4.00-5.60); RDW 14.9 % (11.9-15.9)
[2024-09-03 11:24] LABS: POTASSIUM 3.8 mmol/L (3.5-5.1)
[2024-09-03 11:34] LABS: CALCIUM 8.7 mg/dL (8.5-10.1)
[2024-09-03 11:35] LABS: BLOOD UREA NITROGEN 10.5 mg/dL (7-18)
[2024-09-03 11:37] LABS: CREATININE 1.6 mg/dL (0.55-1.3)
[2024-09-03 11:39] LABS: TOT PROT 6.2 g/dl (6.4-8.2)
[2024-09-03 12:26] VITALS: BP 141/61; PULSE 60; TEMP 97.6
== END 2024-09-03 18:44 | disposition home or self-care (01) | DRG 439 ==
LOC: JER 20:31 → JERBED 09-01 04:21 → J6S 09-01 05:49
PROVIDERS: ADMIT Internal Medicine; ATTEND Internal Medicine
DX: K85.10 Biliary acute pancreatitis without necrosis or infection (principal); I13.0 Hypertensive heart and chronic kidney disease with heart failure and stage 1 through stage 4 chronic kidney disease, or unspecified chronic kidney disease; I50.32 Chronic diastolic (congestive) heart failure; N17.9 Acute kidney failure, unspecified; K56.7 Ileus, unspecified; E78.5 Hyperlipidemia, unspecified; K80.20 Calculus of gallbladder without cholecystitis without obstruction; N18.9 Chronic kidney disease, unspecified; E11.22 Type 2 diabetes mellitus with diabetic chronic kidney disease; Z79.4 Long term (current) use of insulin; I25.10 Atherosclerotic heart disease of native coronary artery without angina pectoris
CPT/HCPCS: 36415; 74176-TC; 76700-TC; 80048; 80053; 81003; 82962; 83036; 83605; 83690; 84478; 85025; 85610; 85730; 86850; 86900; 86901; 87086; 99285-25; J0131